=== PATIENT | female | born 1960 | race African-American/Black ===

== ENCOUNTER 2017-06-30 16:01 | Emergency (ER) | payer MEDICAID ==
[~2017-06-30] VITALS: Ht 162.6 cm; Wt 97.0 kg
[~2017-06-30 16:01] MED LIST: ACETAMIN-HYDROcod 325-5 MG PO; AMLO5 PO; ATOR40TA49 PO; CHLO50TA PO; CLON.2 PO; ECOT81TA2 PO; NAPR-576 PO; RANI150 PO; Z.0.WALKERFRONT
[2017-06-30 16:03] VITALS: BP 136/90; PULSE 73; RESP 15; TEMP 97.8; O2SAT 96
--- NOTE | 2017-06-30 16:21 | PD ---
HPI . right knee cut for few hours Chief Complaint: Fall Time Seen by Provider: 16:32 Travel History International Travel<30 days: No Contact w/Intl Traveler<30days: No Traveled to known affect area: No History of Present Illness HPI 57-year-old female with history of hypertension here with complaints of her right knee laceration she sustained around 8:52 AM this morning. Patient was trying to get cord and somehow slipped and fell and cut herself on a piece of glass. She tells me that the class was dirty. She is up-to-date on her tetanus shot. She also tells me that she thinks she broke her toe, but that is not her concern. She wants me to take care of her right knee laceration. She has no other complaints. PFSH Past Medical History Arthritis: Yes (in feet and hands) Asthma: No Blood Disorders: No Anxiety: Yes Depression: Yes Heart Rhythm Problems: No Cancer: No Cardiovascular Problems: Yes (HTN) High Cholesterol: Yes Chest Pain: Yes Congestive Heart Failure: No COPD: No Diabetes: No Diminished Hearing: No Endocrine: No GERD: Yes Gout: Yes Genitourinary: No Headaches: Yes Hypertension: Yes Immune Disorder: No Musculoskeletal: Yes Neurologic: Yes Psychiatric: Yes Reproductive: No Respiratory: Yes Immunizations Current: Yes Migraines: Yes Radiation Therapy: No Sleep Apnea: No Thyroid Disease: No Ulcer: Yes ?: Not Menopausal: Yes : 8 Para: 8 Tubal Ligation: Yes Past Surgical History AICD: No Arteriovenous Shunt: No Gynecologic Surgery: Yes (tubigal ligation/ miscarrige) Insulin Pump: No Joint Replacement: No Pacemaker: No Other Surgery: Yes Social History Alcohol Use: Yes (4-5 TIMES A WEEK) Tobacco Use: Yes (5 cigs day) Substance Use: No (denies) Allergies-Medications (Allergen,Severity, Reaction): Coded Allergies: Naprosyn (Verified Allergy, Severe, 07/03/16) Motrin (Verified Adverse Reaction, Severe, chest tightness, 07/03/16) Reported Meds & Prescriptions Reported Meds & Active Scripts Active Bactrim DS (Sulfamethoxazole-Trimethoprim) 800-160 Mg Tab 1 Tab PO BID Naproxen 500 Mg Tab 500 Mg PO BID PRN [email or web address] Device 1 Unit Ecotrin Low Strength (Aspirin) 81 Mg Tabec 81 Mg PO DAILY Norvasc (Amlodipine Besylate) 5 Mg Tab 5 Mg PO DAILY [ACETAMIN-HYDROcod 325-5 MG] 1 TAB Tab 1 Tab PO Q6H PRN Lipitor 40 Mg Tab (Atorvastatin Calcium) 40 Mg Tab 40 Mg PO DAILY Reported Chlorthalidone 50 Mg Tab 50 Mg PO DAILY Zantac 150 Mg Tab (Ranitidine HCl) 150 Mg Tab 150 Mg PO BID Catapres 0.2 mg (Clonidine HCl) 0.2 Mg Tab 0.2 Tab PO BID Review of Systems General / Constitutional: No: Fever Eyes: No: Visual changes HENT: No: Headaches Cardiovascular: No: Chest Pain or Discomfort Respiratory: No: Shortness of Breath Gastrointestinal: No: Abdominal Pain Genitourinary: No: Dysuria Musculoskeletal: No: Pain Skin: Positive Other (right knee wound), No Rash Neurologic: No: Weakness Psychiatric: No: Depression Endocrine: No: Polydipsia Hematologic/Lymphatic: No: Easy Bruising Physical Exam Narrative GENERAL: AAO x 3, no acute distress, Well-nourished, well-developed patient. SKIN: Warm and dry. No visible rashes or bruising. 2.3 cm avulsion to to the right knee, no evidence of bone, vessel or nerve injury. This is very superficial. Evidence of retained foreign body HEAD: Normocephalic and atraumatic. EYES: No scleral icterus. No injection or drainage. ENT: No nasal drainage noted. Mucous membranes pink. Airway patent. NECK: Supple, trachea midline. No JVD. CARDIOVASCULAR: Regular rate and rhythm without murmurs, gallops, or rubs. RESPIRATORY: Breath sounds equal bilaterally. No accessory muscle use. No rhonchi or rales. GASTROINTESTINAL: Visual inspection normal EXTREMITIES: No cyanosis or edema. BACK: No obvious deformity. NEURO: CN II-12 intact, PSYCH: AAO x 3, normal affect. Data Data Last Documented VS Vital Signs Date Time Temp Pulse Resp B/P Pulse Ox O2 Delivery O2 Flow Rate FiO2 06/30/17 16:03 97.8 73 15 136/90 96 Room Air Orders Wound Care (06/30/17 16:25) MDM Medical Decision Making Medical Screen Exam Complete: Yes Emergency Medical Condition: Yes Medical Record Reviewed: Yes Differential Diagnosis skin avulsion, less likely laceration, abrasion Narrative Course 57 yr old female here with skin avulsion that occurred earlier today. I explained to her that this is not a laceration that I can repair. We will clean it and apply a dressing. She is up to date on tetanus. I've asked with the patient that since she thinks her glasses very contaminated , I will cover her with antibiotics. I've chosen Bactrim to cover against MRSA. I recommended she continue to clean this area and apply clean dressings 1-2 times per day. We discussed the signs of infection and when to return to the ED. I recommend follow-up with her primary care provider. Patient asked me to expedite her care as she is trying to catch the bus. I discharge her after the dressing and she was thankful for the services she received. Diagnosis Primary Impression: Avulsion of skin of lower leg Qualified Code: S81.801A - Avulsion of skin of right lower leg, initial encounter Patient Instructions: General Instructions Additional Instructions: Keep area clean and dry. Use gauze as we discussed and change 1-2 times a day. Watch for signs of infection: fever, redness, swelling, warmth, pus or drainage , red streaks around the cut, and increased pain from the area. If you received a tetanus shot, you may experience tenderness at the injection site. This is normal. Please return to emergency department if your symptoms return or worsen. Follow up with your primary care provider. Take medications as prescribed. Med/Other Pt SpecificInfo: Prescription(s) given Scripts Sulfamethoxazole-Trimethoprim (Bactrim DS)800-160 Mg Tab1 Tab PO BID #20 TAB Prov:Erika Carrasco DO 06/30/17 Disposition: 01 DISCHARGE HOME Condition: Stable Hiwot Horan Jun 30, 2017 16:21
[2017-06-30] MEDS ORDERED: BACT800T5 PO (16:46)
== END 2017-06-30 17:07 | disposition home or self-care (01) ==
LOC: NEPK 16:01
DX: S81.011A Laceration without foreign body, right knee, initial encounter (principal); W01.110A Fall on same level from slipping, tripping and stumbling with subsequent striking against sharp glass, initial encounter
CPT/HCPCS: 99283